=== PATIENT | female | born 1985 | race Caucasian/White ===

== ENCOUNTER 2019-04-02 19:35 | Inpatient (IN) | payer OTHER ==
[~2019-04-02] VITALS: Ht 157.5 cm; Wt 118.1 kg
[2019-04-02] MEDS ORDERED: SODIUM CHLORIDE 0.9% 1000ML 1,000 ML IV ONE (20:14)
[2019-04-02] MEDS ORDERED: KETOROLAC TROMETHAMINE 30MG/ML ONE (20:14)
[2019-04-02] MEDS ORDERED: ONDANSETRON HCL 4 MG/2 ML VIAL ONE (20:14)
[2019-04-02] MEDS ORDERED: MORPHINE SULFATE 4 MG/1ML SYG ONE (20:14)
[2019-04-02 20:23] LABS: BASOPHILS % (AUTO) 1.4 % (0.0-5.0); EOSINOPHILS % (AUTO) 6.2 % (0.0-8.0); HEMATOCRIT 36.3 % (36-48); LYMPHOCYTES % (AUTO) 25.4 % (21.0-51.0); MEAN CORPUSCULAR HEMOGLOBIN 26.9 pg (27.0-33.0); MEAN CORPUSCULAR HGB CONC 32.9 g/dL (32.0-36.0); MEAN CORPUSCULAR VOLUME 81.8 fL (79-99); MONOCYTES % (AUTO) 8.6 % (3.0-13.0); NEUTROPHILS % (AUTO) 58.4 % (40.0-77.0); PLATELET COUNT (AUTO) 303 K/uL (130-400); RED BLOOD CELL COUNT(AUTO) 4.44 MIL/uL (4.00-5.50); RED CELL DISTRIBUTION WIDTH 15.6 % (11.0-15.5); WHITE BLOOD COUNT (AUTO) 9.9 K/uL (4.8-10.8)
[2019-04-02 20:32] LABS: APPEARANCE,URINE CLOUDY (CLEAR); BILIRUBIN,URINE NEGATIVE (NEGATIVE); COLOR,URINE RED (YELLOW); GLUCOSE, URINE (UA) NEGATIVE (NEGATIVE); KETONES,URINE NEGATIVE (NEGATIVE); LEUKOCYTE ESTERASE ,URINE LARGE (NEGATIVE); NITRATE,URINE NEGATIVE (NEGATIVE); OCCULT BLOOD,URINE LARGE (NEGATIVE); PH,URINE 7.5 (5.0-8.0); PROTEIN,URINE 30 mg/dL (NEGATIVE)
[2019-04-02 20:39] LABS: BACTERIA,URINE Moderate /HPF (None Seen); MUCUS,URINE Few LPF (None Seen)
[2019-04-02 20:43] LABS: CREATININE 0.9 mg/dL (0.5-1.5); POTASSIUM 3.6 mmol/L (3.5-5.1)
[2019-04-02] MEDS ORDERED: CEFTRIAXONE SODIUM 1 GM ONE (22:32)
[2019-04-02] MEDS: SODIUM CHLORIDE 0.9% 1000ML 1,000 ML IV SCH (23:43)
[2019-04-02] MEDS ORDERED: ACETAMINOPHEN 325 MG TAB PO PRN ×2 (23:45)
[2019-04-02] MEDS ORDERED: ONDANSETRON HCL 4 MG/2 ML VIAL IV PRN (23:45)
[2019-04-02] MEDS ORDERED: HYDRALAZINE HCL 20 MG/ML VIAL IV PRN (23:45)
[2019-04-03] MEDS ORDERED: CEFTRIAXONE SODIUM 1 GM IVP SCH
[2019-04-03] MEDS ORDERED: ZOLPIDEM TARTRATE 5 MG TAB PO PRN
[2019-04-03] MEDS ORDERED: KETOROLAC TROMETHAMINE 30MG/ML IV PRN
[2019-04-03] MEDS ORDERED: SODIUM CHLORIDE 0.9% 1000ML 1,000 ML IV ONE (00:05)
[2019-04-03] MEDS ORDERED: ZOLPIDEM TARTRATE 5 MG TAB ONE (00:05)
[2019-04-03 00:45] VITALS: BP 138/78
[2019-04-03 04:00] VITALS: BP 142/68
[2019-04-03 05:15] LABS: BASOPHILS % (AUTO) 0.9 % (0.0-5.0); EOSINOPHILS % (AUTO) 7.4 % (0.0-8.0); HEMATOCRIT 32.4 % (36-48); LYMPHOCYTES % (AUTO) 26.9 % (21.0-51.0); MEAN CORPUSCULAR HEMOGLOBIN 27.4 pg (27.0-33.0); MEAN CORPUSCULAR HGB CONC 33.1 g/dL (32.0-36.0); MEAN CORPUSCULAR VOLUME 82.8 fL (79-99); MONOCYTES % (AUTO) 7.5 % (3.0-13.0); NEUTROPHILS % (AUTO) 57.3 % (40.0-77.0); PLATELET COUNT (AUTO) 257 K/uL (130-400); RED BLOOD CELL COUNT(AUTO) 3.91 MIL/uL (4.00-5.50); RED CELL DISTRIBUTION WIDTH 15.5 % (11.0-15.5); WHITE BLOOD COUNT (AUTO) 8.2 K/uL (4.8-10.8)
[2019-04-03 05:26] LABS: ALBUMIN 2.9 g/dL (3.5-5.0); BILIRUBIN,TOTAL 0.5 mg/dL (0.2-1.0); POTASSIUM 3.8 mmol/L (3.5-5.1); TOTAL PROTEIN, SERUM 6.2 g/dL (6.0-8.3)
[2019-04-03 08:00] VITALS: BP 117/64
[2019-04-03] MEDS ORDERED: MEROPENEM 1 GM VIAL IVP SCH (08:45)
[2019-04-03] MEDS ORDERED: ENOXAPARIN SODIUM 30 MG/0.3 ML SQ SCH (09:00)
[2019-04-03] MEDS: SODIUM CHLORIDE 0.9% 1000ML 1,000 ML IV SCH (09:20)
[2019-04-03 11:47] VITALS: BP 127/65
--- NOTE | 2019-04-03 13:00 | NUR ---
INITIAL Met with pt and family this afternoon to discuss dcp. Pt mentions that she lives w her spouse and children. Prior to admission she was independent w ambulation and aDLs. She drives where needed. Pt states that she feels safe and comfortable to [place] at [place]. DCP for home. Addendum: 04/04/19 at 1821 by RAJESH GALE CM Amended: Links added.
[2019-04-03 16:00] VITALS: BP 122/57
[2019-04-03] MEDS ORDERED: IBUP-2077 PO (17:31)
--- NOTE | 2019-04-03 18:27 | NUR ---
PATIENT GIVEN DISCHARGE INSTRUCTIONS AND VERBALIZED UNDERSTANDING , PATIENT WILL CALL DR LO OFFICE ON FRIDAY TO SET-UP A FOLLOW-UP APPOINTMENT, REVIEWED RX FOR IBUPROFEN 800MG PO ONE TABLET NEEDED EVERY 6 HOURS FOR PAIN. IV REMOVED AND PRESSURE HELD TO SITE TILL BLEEDING STOPPED . SITE DRESSED. NO QUESTIONS OR CONCERNS AT THIS TIME. PATIENT GETTING DRESSED. PATIENT TAKEN BY WHEELCHAIR TO LOBBY WITH AND FAMILY AT SIDE.
== END 2019-04-03 18:30 | disposition home or self-care (01) | DRG 392 ==
LOC: EDH 19:35 → EDHIP 23:43 → 3BH 04-03 00:21
PROVIDERS: ADMIT Family Medicine; ATTEND Family Medicine
PROC: 0TP9XDZ Removal of Intraluminal Device from Ureter, External Approach (ICD-10-PCS; principal; 2019-04-03)
DX: R10.9 Unspecified abdominal pain (principal); Z87.442 Personal history of urinary calculi; Z83.3 Family history of diabetes mellitus; Z82.49 Family history of ischemic heart disease and other diseases of the circulatory system; Z90.49 Acquired absence of other specified parts of digestive tract
CPT/HCPCS: 36415; 74176; 76770; 80048; 80053; 81001; 81025; 85025; 87088; G0378; J0696; J1650; J1885; J2185; J2270; J2405; J7030

== ENCOUNTER 2023-03-17 10:54 | Emergency (ER) | payer BC, OTHER ==
[~2023-03-17] VITALS: Ht 157.5 cm; Wt 108.4 kg
[~2023-03-17 10:54] MED LIST: IBUP-2077 PO
[2023-03-17 12:08] LABS: HEMATOCRIT 30.2 % (36-48); MEAN CORPUSCULAR HEMOGLOBIN 21.1 pg (27.0-33.0); MEAN CORPUSCULAR HGB CONC 28.8 g/dL (32.0-36.0); MEAN CORPUSCULAR VOLUME 73.1 fL (79-99); PLATELET COUNT (AUTO) 339 K/uL (130-400); RED BLOOD CELL COUNT(AUTO) 4.13 MIL/uL (4.00-5.50); RED CELL DISTRIBUTION WIDTH 28.8 % (11.0-15.5); WHITE BLOOD COUNT (AUTO) 9.3 K/uL (4.8-10.8)
[2023-03-17 12:28] LABS: ALBUMIN 3.7 g/dL (3.5-5.0); BILIRUBIN,TOTAL 0.5 mg/dL (0.2-1.0); CREATININE 0.8 mg/dL (0.5-1.5); POTASSIUM 4.4 mmol/L (3.5-5.1); TOTAL PROTEIN, SERUM 7.7 g/dL (6.0-8.3)
[2023-03-17 12:49] VITALS: BP 138/82; PULSE 80; RESP 14; O2SAT 100
[2023-03-17 13:30] LABS: EOSINOPHILS % (MANUAL) 5 % (1-6); LYMPHOCYTES % (MANUAL) 26 % (22-44); MAN.DIFF COMMENT-IMPRESSION MANUAL DIFFERENTIAL; MONOCYTES % (MANUAL) 6 % (2-9); SEGMENTED NEUTROPHILS % 63 % (40-70); TOTAL CELLS COUNTED 100
[2023-03-17 13:31] LABS: PLATELET MORPHOLOGY COMMENT ADEQUATE
== END 2023-03-17 15:01 | disposition left against medical advice (07) ==
LOC: EDH 10:54
DX: R06.09 Other forms of dyspnea (principal); D64.9 Anemia, unspecified; F17.200 Nicotine dependence, unspecified, uncomplicated; Z98.890 Other specified postprocedural states
CPT/HCPCS: 36415; 71045; 80053; 82550; 84484; 85025; 86850; 86900; 86901; 93005